=== PATIENT | female | born 1950 | race Caucasian/White ===

== ENCOUNTER → 2016-06-14 | Outpatient (CLI) | payer BC ==
[~2016-06-14] MED LIST: DYZ PO; HYDR-5688 PO; PRM625 PO
--- NOTE | 2016-06-14 12:31 | DIAGNOSTIC IMAGING REPORT ---
RIGHT HIP UNILATERAL 2 VIEWS CLINICAL HISTORY: Right hip pain COMPARISON: None. DISCUSSION: No fractures or subluxations are visualized. There are no erosive or destructive changes. IMPRESSION: Unremarkable conventional radiographic evaluation of the right hip for age Electronically signed by: Ernesto Ledesma M.D. 06/14/2016 12:29 PM Dictated Date/Time: 06/14/2016 12:28 PM
--- NOTE | 2016-06-14 12:33 | DIAGNOSTIC IMAGING REPORT ---
L-SPINE MIN 4 VIEWS ROUTINE CLINICAL HISTORY: Right hip pain COMPARISON STUDY: No previous studies for comparison. FINDINGS: There is a mild lumbar dextroscoliosis. There are degenerative changes most pronounced the L4-5 and L5-S1 levels. No acute fractures or traumatic subluxations are visualized. IMPRESSION: Degenerative change. No acute fractures or traumatic subluxations are visualized. No destructive lesions are evident. Electronically signed by: Ernesto Ledesma M.D. 06/14/2016 12:30 PM Dictated Date/Time: 06/14/2016 12:29 PM
== END | disposition home or self-care (01) ==
LOC: C.RADPV 11:55
PROVIDERS: ATTEND Nurse Practitioner Family
DX: M25.551 Pain in right hip (principal)

== ENCOUNTER → 2017-04-07 | Outpatient (CLI) | payer OTHER ==
[~2017-04-07] MED LIST changes: -HYDR-5688 PO
== END | disposition home or self-care (01) ==
LOC: C.PATHSPEC 18:34
PROVIDERS: ATTEND Plastic Surgery
DX: L98.9 Disorder of the skin and subcutaneous tissue, unspecified (principal)

== ENCOUNTER → 2017-06-09 | Outpatient (CLI) | payer OTHER | END | disposition home or self-care (01) | LOC: C.MAMM 11:14 | PROVIDERS: ATTEND Family Medicine | DX: N95.8 Other specified menopausal and perimenopausal disorders (principal) ==